=== PATIENT | female | born 1960 | race Caucasian/White ===

== ENCOUNTER → 2016-04-30 | Outpatient (CLI) | payer OTHER ==
[~2016-04-30] MED LIST: LISI-461 PO; LISI-729 PO; OXYC-57 PO
[2016-04-30 17:03] LABS: BASO % 0.4 %; BASO ABS # 0.03 K/uL (0-0.2); COMPLETE YES; HEMATOCRIT 40.6 % (37-47); IG% 0.3 %; LYMPH % 33.9 %; LYMPH ABS # 2.66 K/uL (1.2-3.4); MEAN CELL VOLUME 92.1 fL (80-100); MEAN CORPUSCULAR HEMOGLOBIN 31.3 pg (25-34); MEAN PLATELET VOLUME 9.6 fL (7.4-10.4); MONO % 9.2 %; NEUT % 54.2 %; PLATELET COUNT 316 K/uL (130-400); RED BLOOD COUNT 4.41 M/uL (4.2-5.4); WHITE BLOOD COUNT 7.85 K/uL (4.8-10.8)
[2016-04-30 17:10] LABS: BLOOD UREA NITROGEN 20 mg/dl (7-18); BUN/CREATININE RATIO 27.8 (10-20); CALCIUM 9.4 mg/dl (8.5-10.1); CARBON DIOXIDE 31 mmol/L (21-32); CHLORIDE 102 mmol/L (98-107); CREATININE 0.71 mg/dl (0.60-1.20); GLUCOSE 96 mg/dl (70-99); POTASSIUM 3.8 mmol/L (3.5-5.1); SODIUM 140 mmol/L (136-145)
== END | disposition home or self-care (01) ==
LOC: C.LABBC 13:51
PROVIDERS: ATTEND Orthopaedic Surgery
DX: Z01.812 Encounter for preprocedural laboratory examination (principal); M25.512 Pain in left shoulder

== ENCOUNTER → 2016-05-10 | Day surgery (SDC) | payer OTHER ==
[2016-05-03 12:47] VITALS: Ht 160 cm; Wt 68.2 kg
[~2016-05-10] VITALS: Ht 160 cm; Wt 68.2 kg
[~2016-05-10] MED LIST changes: +ATROPINE SULFATE 0.1 MG/ML 5ML SYR IV PRN; +BUPIVACAINE 0.5 % 5 MG/1 ML PF 10ML VIAL ONE; +DEXAMETHASONE INJ 8 MG in SYRINGE 0 ML IV ONE; +DEXAMETHASONE SOD INJ 4 MG/ML VIAL ONE; +EpHEDrine SULFATE INJ 50 MG/ML AMP IV PRN; +FENTANYL CITRATE INJ 50 MCG/1 ML 2 ML VIAL IV PRN; +FENTANYL CITRATE INJ 50 MCG/1 ML 2 ML VIAL ONE; +HYDROmorphone INJ 0.5 MG/0.5 ML SYR IV PRN; +HYDROmorphone INJ 0.5 MG/0.5 ML SYR IV SCH; +HYDROmorphone INJ 0.5 MG/0.5 ML SYR ONE; +LACTATED RINGER'S 1000ML 1,000 ML IV SCH; +LIDOCAINE HCL 1% MPF 2 ML VIAL ONE; +LIDOCAINE HCL 2% 2 ML VIAL (20MG/ML) ONE; +MIDAZOLAM HCL 1 MG/ML 2ML VIAL ONE; +MIDAZOLAM HCL 5 MG/ML 1 ML VIAL IV PRN; +NURSING VERBAL MED ORDER ONE; +ONDANSETRON INJ 2 MG/ML 2 ML VIAL IV PRN; +ONDANSETRON INJ 2 MG/ML 2 ML VIAL ONE; +OXYCODONE/ACETAMINOPHEN 5-325 TAB ONE; +OXYCODONE/ACETAMINOPHEN 5-325 TAB PO PRN; +PROPOFOL IV EMULSION 10 MG/ML 20 ML VIAL IV ONE; +ROPIVACAINE 0.5% 5 MG/ML 30 ML VIAL ONE; +SCOPOLAMINE 1.5 MG TDSY TD ONE; +SODIUM CHLORIDE 0.9% 1000ML 1,000 ML IV SCH
--- NOTE | 2016-05-10 06:41 | History & Physical Bridge - SC ---
H&P Re-Evaluation Bridge Note: I have examined the patient, reviewed the History & Physical and in the interval since the performance of the History & Physical I have noted the following changes of clinical significance: No changes noted
--- NOTE | 2016-05-10 07:26 | Discharge Instructions-SurgCtr ---
Discharge Instructions Visit Reason for Visit: Left Shoulder Adhesive Capsulitis, Pain Discharge Goals Goal(s): Decrease discomfort, Improve function Activity Recommendations Activity Limitations: as noted below Lifting Limitations: gradually increase as tolerated Exercise/Sports Limitations: gradually increase as tolerated Shower/Bathe: tomorrow Driving or Machine Use: resume 1 day after discharge Anesthesia . Post Anesthesia Instructions: If you have had General Anesthesia or IV Sedation: * Do not drive today. * Resume driving when surgeon permits. * Do not make important decisions or sign legal documents today. * Call surgeon for: 1. Temperature elevations greater than 101 degrees F. 2. Uncontrollable pain. 3. Excessive bleeding. 4. Persistent nausea and vomiting. 5. Medication intolerance (nausea, vomiting or rash). * For nausea and vomiting use only clear liquids such as: tea, soda, bouillon until nausea subsides, then gradually increase diet as tolerated. * If you have any concerns or questions, call your surgeon's office. If physician is unavailable and it is an emergency, call 911 or go to the nearest emergency room. . Instructions / Follow-Up Instructions / Follow-Up MEDICATIONS: * Resume previous medications unless instructed otherwise by your surgeon. * Always take pain medication on a full stomach or with food to avoid upset stomach. * Do not drink alcohol or drive while taking narcotics. * Ibuprofen or Tylenol may be taken if narcotic not needed. SPECIAL CARE INSTRUCTIONS: __ None _X_ Keep extremity elevated and iced x 48 hours; apply ice 20-30 minutes 8-10 times/day. May remove at night. _X_ Sling (REMOVE AFTER 24 HOURS) __24 hrs/day __ Remove at night __ Shoulder Immobilizer __ 24 hrs/day __ Remove at night __ Dressing __ Maintain until seen in office, may shower with plastic over site __ Remove dressings in 24-48 hours and then may shower __ Cover incisions with band-aids after showering __ Do not remove steri-strips Call physician if chills or temperature rises above 102 degrees or pain unrelieved by prescribed pain medications at . . Diet Recommendations Home Diet: no limitations Fluid Restriction: None Pending Studies Studies pending at discharge: no Work Instructions Return To Work: 3 days (MAY RETURN WHEN PAIN IS CONTROLLED OR EARLY SATURDAY ) Lifting Limitations: none Medical Emergencies . Who to Call and When: Medical Emergencies: If at any time you feel your situation is an emergency, please call 911 immediately. . Non-Emergent Contact Non-Emergency issues call your: Primary Care Provider Call Non-Emergent contact if: you have a fever, temperature is above 101.5 . . "Provider Documentation" section prepared by Baltazar Barnett.
--- NOTE | 2016-05-10 07:40 | OPERATIVE REPORT ---
DATE OF OPERATION: 05/10/2016 PREOPERATIVE DIAGNOSIS: Adhesive capsulitis of the left shoulder. POSTOPERATIVE DIAGNOSIS: Same. PROCEDURE: Manipulation under anesthesia, left shoulder. SURGEON: Dr. Dimitri Espinosa. SHOE SHINER: None. ANESTHESIA: Sedation with a left interscalene nerve block. COMPLICATIONS: None. CONDITION: Stable to PACU. INDICATIONS: Ethan is a very pleasant 55-year-old female who presented to my office with chronic tightness of her left shoulder. MRI and clinical examination were all diagnostic for adhesive capsulitis of the left shoulder. After failing conservative treatment, she elected to undergo manipulation. On 05/10/2016, she arrived at [facility] for the above procedure. She was seen in the preoperative holding area and the operative extremity was identified and signed. She was then taken back to the operating room and left on the litter. She was given basic sedation. She had an interscalene block. A time-out was done and the patient and operative extremity was properly identified. On preoperative physical examination, she only had about 45 degrees of abduction and 30 degrees of external rotation. A manipulation was then done. Most of the main manipulation seemed and involved the inferior glenohumeral ligament. Once I was able to get through the inferior glenohumeral ligament, I was able to easily get her into full external rotation and internal rotation. She had full range of motion of her shoulder. The glenohumeral joint was then injected with 80 mg of Depo-Medrol. She was then taken to the postanesthesia care unit in stable condition. She tolerated the procedure fine. I attest to the content of the Intraoperative Record and any orders documented therein. Any exceptio ns are noted below.
--- NOTE | 2016-05-10 07:44 | [facility] Post Operative Brief Note ---
Immediate Operative Summary Operative Date May 10, 2016. Pre-Operative Diagnosis Left Shoulder Adhesive Capsulitis Post-Operative Diagnosis Same Procedure(s) Performed Left Shoulder Manipulation Under Anesthesia Surgeon Dr. Espinosa Special Warfare Operator Surgeon(s) None Estimated Blood Loss 0 mL Findings as above Specimens None Complication(s) None Disposition Recovery Room / PACU
--- NOTE | 2016-05-10 09:56 | Anesthesiology Progress Note ---
Anesthesia Post Op Note Date & Time May 10, 2016 at 09:55 Vital Signs Pain Intensity: 0 Vital Signs Past 12 Hours Date Time Temp Pulse Resp B/P Pulse Ox O2 Delivery O2 Flow Rate FiO2 05/10/16 09:41 36.4 67 16 139/87 96 Room Air 05/10/16 09:25 68 17 05/10/16 09:25 68 17 97 05/10/16 09:23 143/82 05/10/16 09:20 60 11 05/10/16 09:20 61 11 98 05/10/16 09:18 141/80 05/10/16 09:15 63 11 99 05/10/16 09:15 64 11 05/10/16 09:13 144/85 05/10/16 09:10 61 11 100 05/10/16 09:10 62 11 05/10/16 09:08 157/86 05/10/16 09:05 62 12 100 05/10/16 09:05 62 12 05/10/16 09:04 61 12 05/10/16 09:04 60 12 100 05/10/16 09:03 147/83 05/10/16 08:59 62 12 05/10/16 08:59 62 12 100 05/10/16 08:58 150/81 05/10/16 08:54 66 14 05/10/16 08:54 66 14 100 05/10/16 08:53 157/88 05/10/16 08:49 61 11 100 05/10/16 08:49 61 11 05/10/16 08:48 153/85 05/10/16 08:44 67 14 100 05/10/16 08:44 65 14 05/10/16 08:43 159/93 05/10/16 08:39 55 12 05/10/16 08:39 55 12 141/80 100 05/10/16 08:34 66 18 100 05/10/16 08:34 65 18 05/10/16 08:33 157/97 05/10/16 08:29 67 8 100 05/10/16 08:29 67 8 05/10/16 08:28 142/98 05/10/16 08:25 36.2 68 20 142/98 99 Room Air 05/10/16 07:43 161/93 05/10/16 07:40 36.8 76 16 163/104 96 Room Air 05/10/16 07:14 76 21 05/10/16 07:13 70 05/10/16 07:13 69 16 131/82 05/10/16 07:08 69 05/10/16 07:08 68 14 120/77 05/10/16 07:04 125/73 05/10/16 07:03 72 05/10/16 07:03 73 15 05/10/16 07:00 64 12 155/83 100 Nasal Cannula 3 05/10/16 06:59 155/83 05/10/16 06:58 68 05/10/16 06:53 74 0 05/10/16 06:48 66 0 05/10/16 06:43 68 0 05/10/16 06:28 37.1 70 16 128/83 96 Room Air Notes Mental Status: alert / awake / arousable, participated in evaluation Pt Amnestic to Procedure: Yes Nausea / Vomiting: adequately controlled Pain: adequately controlled Airway Patency, RR, SpO2: stable & adequate BP & HR: stable & adequate Hydration State: stable & adequate Anesthetic Complications: no major complications apparent
[2016-05-10 10:04] VITALS: TEMP 36.4
[2016-05-10 10:40] VITALS: BP 128/78; PULSE 58; O2SAT 96
== END | disposition home or self-care (01) ==
LOC: X.SURG 06:14
PROVIDERS: ATTEND Orthopaedic Surgery
DX: M75.02 Adhesive capsulitis of left shoulder (principal); M25.512 Pain in left shoulder; I10 Essential (primary) hypertension

== ENCOUNTER 2016-12-08 03:51 | Emergency (ER) | payer OTHER ==
[~2016-12-08] VITALS: Ht 160 cm; Wt 67.9 kg
[~2016-12-08 03:51] MED LIST changes: -ATROPINE SULFATE 0.1 MG/ML 5ML SYR IV PRN; -BUPIVACAINE 0.5 % 5 MG/1 ML PF 10ML VIAL ONE; -DEXAMETHASONE INJ 8 MG in SYRINGE 0 ML IV ONE; -DEXAMETHASONE SOD INJ 4 MG/ML VIAL ONE; -EpHEDrine SULFATE INJ 50 MG/ML AMP IV PRN; -FENTANYL CITRATE INJ 50 MCG/1 ML 2 ML VIAL IV PRN; -FENTANYL CITRATE INJ 50 MCG/1 ML 2 ML VIAL ONE; -HYDROmorphone INJ 0.5 MG/0.5 ML SYR IV PRN; -HYDROmorphone INJ 0.5 MG/0.5 ML SYR IV SCH; -HYDROmorphone INJ 0.5 MG/0.5 ML SYR ONE; -LACTATED RINGER'S 1000ML 1,000 ML IV SCH; -LIDOCAINE HCL 1% MPF 2 ML VIAL ONE; -LIDOCAINE HCL 2% 2 ML VIAL (20MG/ML) ONE; -LISI-729 PO; -MIDAZOLAM HCL 1 MG/ML 2ML VIAL ONE; -MIDAZOLAM HCL 5 MG/ML 1 ML VIAL IV PRN; -NURSING VERBAL MED ORDER ONE; -ONDANSETRON INJ 2 MG/ML 2 ML VIAL IV PRN; -ONDANSETRON INJ 2 MG/ML 2 ML VIAL ONE; -OXYC-57 PO; -OXYCODONE/ACETAMINOPHEN 5-325 TAB ONE; -OXYCODONE/ACETAMINOPHEN 5-325 TAB PO PRN; -PROPOFOL IV EMULSION 10 MG/ML 20 ML VIAL IV ONE; -ROPIVACAINE 0.5% 5 MG/ML 30 ML VIAL ONE; -SCOPOLAMINE 1.5 MG TDSY TD ONE; -SODIUM CHLORIDE 0.9% 1000ML 1,000 ML IV SCH
[2016-12-08 03:57] VITALS: TEMP 36.6; Ht 160 cm; Wt 67.9 kg
[2016-12-08] MEDS ORDERED: SODIUM CHLORIDE 0.9% 1000ML 1,000 ML IV ONE (04:15)
[2016-12-08 04:30] LABS: BASO % 0.5 %; BASO ABS # 0.03 K/uL (0-0.2); COMPLETE YES; EOS % 2.6 %; HEMATOCRIT 39.8 % (37-47); IG% 0.2 %; LYMPH % 41.5 %; LYMPH ABS # 2.69 K/uL (1.2-3.4); MEAN CELL VOLUME 92.6 fL (80-100); MEAN CORPUSCULAR HEMOGLOBIN 31.6 pg (25-34); MEAN CORPUSCULAR HGB CONC 34.2 g/dl (32-36); MONO % 7.9 %; NEUT % 47.3 %; PLATELET COUNT 266 K/uL (130-400); WHITE BLOOD COUNT 6.48 K/uL (4.8-10.8)
[2016-12-08] MEDS ORDERED: OPTIRAY 320 IV PRN (04:30)
[2016-12-08] MEDS ORDERED: LISI-729 PO (04:49)
[2016-12-08 05:00] LABS: BUN/CREATININE RATIO 28.9 (10-20); CALCIUM 8.8 mg/dl (8.5-10.1); CREATININE 0.77 mg/dl (0.60-1.20); MAGNESIUM 2.2 mg/dl (1.8-2.4); POTASSIUM 4.1 mmol/L (3.5-5.1)
[2016-12-08 05:05] LABS: ALB/GLOB RATIO 0.9 (0.9-2); THYROID STIMULATING HORMONE 2.96 uIu/ml (0.300-4.500)
[2016-12-08 05:31] LABS: LYME DISEASE AB IGG NEG (NEG); LYME DISEASE AB IGM NEG (NEG)
[2016-12-08 07:15] VITALS: BP 131/75; PULSE 58; O2SAT 98
--- NOTE | 2016-12-08 10:41 | DIAGNOSTIC IMAGING REPORT ---
CT ANGIOGRAPHY OF THE CHEST, PULMONARY EMBOLUS PROTOCOL CLINICAL HISTORY: Left-sided chest and shoulder pain. COMPARISON STUDY: No previous studies for comparison. TECHNIQUE: Following IV administration of 87 mL of Optiray-320, helical axial images of the chest were obtained utilizing the pulmonary embolus protocol. Maximal intensity projections and sagittal and coronal reformats were viewed on an independent 3D workstation. IV contrast was administered without complication. A dose lowering technique was utilized adhering to the principles of ALARA. CT DOSE: 186.51 mGy.cm FINDINGS: No pulmonary emboli are identified. The size of the heart is normal. There is no pericardial effusion. There is no evidence of thoracic aortic dissection. No enlarged axillary, mediastinal or hilar lymph nodes are present. Central airways are patent. There is no consolidation. Subpleural groundglass opacities favor atelectasis. Bony thorax and upper abdomen are unremarkable. IMPRESSION: 1. No pulmonary emboli identified. 2. No acute intrathoracic findings. Electronically signed by: Noel Jaeger M.D. 12/08/2016 10:39 AM Dictated Date/Time: 12/08/2016 10:34 AM
--- NOTE | 2016-12-08 22:09 | EMERGENCY ROOM VISIT NOTE ---
History First contact with patient: 04:00 Chief Complaint: CARDIAC ASSESSMENT Stated Complaint: PAIN BEHIND LFT SHOULDER BLADE,CAN'T TAKE DEEP JERRY Nursing Triage Summary: pt was woken from sleep by a sharp pain in left shoulder blade area. reports increased pain with movement and with deep breath, states "it will just like, zap me." hx htn, on lisinopril. pt denies recent travel or other medical problems. pt alert and oriented x4. breathing WNL. History of Present Illness The patient is a 56 year old female who presents to the Emergency Room with complaints of sharp pain just beneath her left shoulder that woke her from sleep approximately 90 minutes ago. The patient states the pain does worsen with deep inspiration. She does have some shortness of breath when the pain occurs. She does not have a recent travel history. No history of LA, DVT, or PE in the past. She has not taken anything [id number] for her symptoms. She does have a past history of adhesive capsulitis in the left shoulder, however this pain tonight does not feel similar to that. The patient has not been lightheaded or dizzy. She rates her discomfort a 7/10 at worst. Review of Systems More than 10 systems were reviewed and otherwise negative with the exception of history of present illness. Past Medical/Surgical History History of hypertension Social History Smoking Status: Never Smoker Housing Status: lives with family Current/Historical Medications Scheduled Lisinopril (Zestril), 5 MG PO DAILY Physical Exam Vital Signs Date Time Temp Pulse Resp B/P (MAP) Pulse Ox O2 Delivery O2 Flow Rate FiO2 12/08/16 07:15 58 15 131/75 98 12/08/16 05:57 66 18 130/76 97 Room Air 12/08/16 04:21 Room Air 12/08/16 04:19 60 12/08/16 03:57 36.6 66 20 161/94 97 Room Air Pain Rating (0-10): 2.0 Physical Exam VITALS: Vitals are noted on the nurse's note and reviewed by myself. Vital signs stable. GENERAL: Well-developed, well-nourished, white female, who is in no acute distress and resting comfortably. Patient is cooperative with the examination. NECK: Supple without nuchal rigidity. No lymphadenopathy. No thyromegaly. Cervical spine is nontender. HEART: Regular rate and rhythm without murmurs gallops or rubs. LUNGS: Clear to auscultation bilaterally without wheezes, rales or rhonchi. No retractions or accessory muscle use. MUSCULOSKELETAL: No palpable tenderness appreciated throughout the left scapula and left shoulder. No significant spasm noted. No rash or lesion. The patient is with full range of motion of the left upper extremity. NEURO: Patient was alert and oriented to person place and time. CN II through XII grossly intact. Medical Decision & Procedures ER Provider Diagnostic Interpretation: CT ANGIOGRAPHY OF THE CHEST, PULMONARY EMBOLUS PROTOCOL CLINICAL HISTORY: Left-sided chest and shoulder pain. COMPARISON STUDY: No previous studies for comparison. TECHNIQUE: Following IV administration of 87 mL of Optiray-320, helical axial images of the chest were obtained utilizing the pulmonary embolus protocol. Maximal intensity projections and sagittal and coronal reformats were viewed on an independent 3D workstation. IV contrast was administered without complication. A dose lowering technique was utilized adhering to the principles of ALARA. CT DOSE: 186.51 mGy.cm FINDINGS: No pulmonary emboli are identified. The size of the heart is normal. There is no pericardial effusion. There is no evidence of thoracic aortic dissection. No enlarged axillary, mediastinal or hilar lymph nodes are present. Central airways are patent. There is no consolidation. Subpleural groundglass opacities favor atelectasis. Bony thorax and upper abdomen are unremarkable. IMPRESSION: 1. No pulmonary emboli identified. 2. No acute intrathoracic findings. Laboratory Results 12/08/16 04:19 Red Blood Count 4.30, Mean Corpuscular Volume 92.6, Mean Corpuscular Hemoglobin 31.6, Mean Corpuscular Hemoglobin Concent 34.2, Mean Platelet Volume 9.0, Neutrophils (%) (Auto) 47.3, Lymphocytes (%) (Auto) 41.5, Monocytes (%) (Auto) 7.9, Eosinophils (%) (Auto) 2.6, Basophils (%) (Auto) 0.5, Neutrophils # (Auto) 3.07, Lymphocytes # (Auto) 2.69, Monocytes # (Auto) 0.51, Eosinophils # (Auto) 0.17, Basophils # (Auto) 0.03 12/08/16 04:19 Test 12/08/16 04:19 12/08/16 04:25 White Blood Count 6.48 K/uL (4.8-10.8) Red Blood Count 4.30 M/uL (4.2-5.4) Hemoglobin 13.6 g/dL (12.0-16.0) Hematocrit 39.8 % (37-47) Mean Corpuscular Volume 92.6 fL (80-100) Mean Corpuscular Hemoglobin 31.6 pg (25-34) Mean Corpuscular Hemoglobin Concent 34.2 g/dl (32-36) Platelet Count 266 K/uL (130-400) Mean Platelet Volume 9.0 fL (7.4-10.4) Neutrophils (%) (Auto) 47.3 % Lymphocytes (%) (Auto) 41.5 % Monocytes (%) (Auto) 7.9 % Eosinophils (%) (Auto) 2.6 % Basophils (%) (Auto) 0.5 % Neutrophils # (Auto) 3.07 K/uL (1.4-6.5) Lymphocytes # (Auto) 2.69 K/uL (1.2-3.4) Monocytes # (Auto) 0.51 K/uL (0.11-0.59) Eosinophils # (Auto) 0.17 K/uL (0-0.5) Basophils # (Auto) 0.03 K/uL (0-0.2) RDW Standard Deviation 43.6 fL (36.4-46.3) RDW Coefficient of Variation 12.9 % (11.5-14.5) Immature Granulocyte % (Auto) 0.2 % Immature Granulocyte # (Auto) 0.01 K/uL (0.00-0.02) Anion Gap 3.0 mmol/L (3-11) Est Creatinine Clear Calc Drug Dose 73.7 ml/min Estimated GFR () 98.6 Estimated GFR (Non- 85.1 BUN/Creatinine Ratio 28.9 (10-20) Calcium Level 8.8 mg/dl (8.5-10.1) Magnesium Level 2.2 mg/dl (1.8-2.4) Total Bilirubin 0.2 mg/dl (0.2-1) Aspartate Amino Transf (AST/SGOT) 45 U/L (15-37) Alanine Aminotransferase (ALT/SGPT) 66 U/L (12-78) Alkaline Phosphatase 89 U/L (45-117) Total Protein 7.5 gm/dl (6.4-8.2) Albumin 3.6 gm/dl (3.4-5.0) Globulin 3.9 gm/dl (2.5-4.0) Albumin/Globulin Ratio 0.9 (0.9-2) Lipase 439 U/L (73-393) Thyroid Stimulating Hormone (TSH) 2.960 uIu/ml (0.300-4.500) Chemistry Specimen Hemolysis Lyme Disease IgG Antibody NEG (NEG) Lyme Disease IgM Antibody NEG (NEG) Bedside Troponin I < 0.030 ng/ml (0-0.045) Medications Administered Medications (Trade) Dose Ordered Sig/Gala Route Start Time Stop Time Status Last Admin Dose Admin Sodium Chloride 1,000 ml @ 999 mls/hr Q1H1M ONCE IV 12/08/16 04:15 12/08/16 05:15 DC 12/08/16 04:26 999 MLS/HR ECG Change: Normal sinus rhythm @61 bpm Normal ECG When compared with ECG of 21-FEB-2016 11:04, No significant change was found Confirmed by GONZALEZ MCKEON ([id number]) on 12/08/2016 4:17:53 PM ED Course Physical exam and history were performed. Nursing notes, EMR, and Medication List were personally reviewed. Patient appears to have some vague sharp left shoulder pain that worsens with deep inspiration. The patient does not have a history of cardiopulmonary disease. Her exam does not seem to show an obvious musculoskeletal etiology of her discomfort. IV access was established and labs were obtained. EKG was performed and is as above. The patient did have a significant concern for PE, and after discussing options of care, she did prefer angiogram, which was ordered. She was hydrated and medicated as above as above. I did offer pain medication, however the patient preferred to defer this at this time. The patient's blood work is as above and was reviewed. She does not have a significantly elevated white blood cell count, gross anemia, bandemia, or significant electrolyte imbalance. Lipase and transaminases are nondiagnostic. Troponin 1 is negative. The patient remained in normal sinus rhythm on the cardiac rehabilitation program director. Her chest CT does not show evidence of PE, aneurysm, dissection, or other etiology of her pain. On reevaluation the patient felt very comfortable and did not have worsening of her symptoms. We discussed options of staying in the hospital or follow-up as an outpatient, and the patient did prefer to go home this evening, which seems reasonable. I suspect that this may be related to some chronic shoulder issues , as she has had adhesive capsulitis in the past. The patient appears reasonable and understands the importance of returning to ER with any new, worsening, or concerning symptoms. She rated her discomfort a 0/10 at the time of departure. The chart was completed utilizing [employer] Speech Voice Recognition Software. Grammatical errors, random word insertions, pronoun errors, and incomplete sentences are an occasional consequence of this system due to software limitations, ambient noise, and hardware issues. Any formal questions or concerns about the content, text, or information contained within the body of this dictation should be directly addressed to the provider for clarification. . Medical Decision Differential diagnosis includes, but is not limited to: Myocardial infarction, dysrhythmia, pericarditis, pneumothorax, aortic aneurysm/dissection, DVT/PE, anxiety, GERD, PUD, electrolyte imbalance, thyroid disorder, pneumonia, bronchitis, pancreatitis, and others Medication Reconcilliation Current Medication List: was personally reviewed by me Blood Pressure Screening Blood pressure disposition: Elevated BP felt to be situational Impression Primary Impression: Left shoulder pain Departure Information Dispostion Home / Self-Care Condition GOOD Forms IMPORTANT VISIT INFORMATION Patient Instructions My [facility] Additional Instructions You were seen and evaluated today on an emergency basis only. This is not a substitute for, or an effort to provide, complete comprehensive medical care. It is not possible to recognize and treat all injuries or illnesses in a single emergency department visit. For this reason it is recommended that you followup with your primary care physician this week for ongoing care and evaluation. You may take Tylenol 1000 mg every 6 hours as needed for pain control You are welcome to return to the emergency department anytime with new, worsening, or concerning symptoms.
== END 2016-12-08 07:15 | disposition home or self-care (01) ==
LOC: C.EDB 03:52
DX: M25.512 Pain in left shoulder (principal); I10 Essential (primary) hypertension